=== PATIENT | female | born 1970 | race Caucasian/White ===

== ENCOUNTER 2016-09-01 12:11 | Emergency (ER) | payer OTHER ==
[2016-09-01 12:11] VITALS: BMI 22.4
[2016-09-01 12:23] VITALS: BP 118/74; PULSE 66; RESP 16; TEMP 98.8; O2SAT 100
[2016-09-01] MEDS ORDERED: Sodium Chloride 0.9% 1,000 ML IV STA (13:15)
--- NOTE | 2016-09-01 13:40 | ED PDOC ---
HPI: General Adult Time Seen by Provider: 09/01/16 12:29 Chief Complaint (Nursing): Flu-like Symptoms Chief Complaint (Provider): Flu-like Symptoms History Per: Patient History/Exam Limitations: no limitations Onset/Duration Of Symptoms: Days (x2) Have you had recent travel within the past 21 days to any of the following countries: [place], [place], [place] or [place]?: No Current Symptoms Are (Timing): Still Present Additional Complaint(s): Laura Sorensen is a 46 year old female that presents to the ED with a chief complaint of fever, cough, and sore throat that she has been experiencing for the past two days. Patient reports that this morning, she developed two episodes of nonbloody vomiting, along with minimal epigastric abdominal pain that began after the vomiting. She denies any diarrhea, chest pain, shortness of breath, constipation, melena, hematemesis, sick contacts, or recent travel. Past Medical History Reviewed: Historical Data, Nursing Documentation, Vital Signs Vital Signs: Last Vital Signs Temp 98.8 F 09/01/16 12:21 Pulse 66 09/01/16 12:21 Resp 16 09/01/16 12:21 BP 118/74 09/01/16 12:21 Pulse Ox 100 09/01/16 13:56 - Medical History PMH: Denies: Chronic Kidney Disease - Family History Family History: States: Unknown Family Hx - Home Medications Home Medications: Ambulatory Orders Medication Instructions Recorded Ciprofloxacin [Cipro] 500 mg PO BID 04/24/16 Famotidine [Pepcid] 20 mg PO BID #30 tab 04/25/16 Ondansetron [Zofran] 4 mg PO Q8H PRN #15 tab 04/25/16 Benzonatate [Tessalon Perle] 100 mg PO Q8 PRN #30 capsule 09/01/16 Naproxen [Naprosyn] 500 mg PO BID PRN #30 tab 09/01/16 Ondansetron ODT [Zofran ODT] 4 mg PO TID #21 odt 09/01/16 - Allergies Allergies/Adverse Reactions: Allergies Allergy/AdvReac Type Severity Reaction Status Date / Time No Known Allergies Allergy Verified 11/13/14 09:27 Review of Systems Constitutional: Positive for: Fever ENT: Positive for: Throat Pain (sore throat) Cardiovascular: Negative for: Chest Pain Respiratory: Positive for: Cough. Negative for: Shortness of Breath Gastrointestinal: Positive for: Vomiting (x2 episodes nonbloody vomiting), Abdominal Pain (epigastric abdominal pain that began after vomiting). Negative for: Diarrhea, Constipation, Melena, Hematemesis Physical Exam - Reviewed Nursing Documentation Reviewed: Yes Vital Signs Reviewed: Yes - Physical Exam Appears: Positive for: Non-toxic, No Acute Distress Head Exam: Positive for: ATRAUMATIC, NORMOCEPHALIC Skin: Positive for: Normal Color, Warm Eye Exam: Positive for: Normal appearance, EOMI, PERRL ENT: Positive for: Pharyngeal Erythema Cardiovascular/Chest: Positive for: Regular Rate, Rhythm. Negative for: Murmur Respiratory: Positive for: Normal Breath Sounds. Negative for: Respiratory Distress Gastrointestinal/Abdominal: Positive for: Soft. Negative for: Tenderness Neurologic/Psych: Positive for: Alert, Oriented - Laboratory Results Result Diagrams: 09/01/16 13:28 09/01/16 13:28 - ECG O2 Sat by Pulse Oximetry: 100 (RA) Pulse Ox Interpretation: Normal - Radiology X-Ray: Interpreted by Me (CXR) X-Ray Interpretation: No Acute Disease - Progress Re-evaluation Time: 15:37 (Reports feeling much better. Denies abdominal pain, headache. ) Condition: Re-examined, Improved Medical Decision Making Medical Decision Making: Impression: Flu-Like Symptoms Plan: * CMP * CBC * Lipase * Blood Culture * Urine * Urinalysis * Flu Swab * Rapid Strep * Chest X-Ray * Reevaluation Scribe Attestation: Documented by Keya Manuel, acting as a scribe for Yuniel Scott PA-C. Provider Scribe Attestation: All medical record entries made by the Scribe were at my direction and personally dictated by me. I have reviewed the chart and agree that the record accurately reflects my personal performance of the history, physical exam, medical decision making, and the department course for this patient. I have also personally directed, reviewed, and agree with the discharge instructions and disposition. Disposition - Clinical Impression Clinical Impression: Viral syndrome - Patient ED Disposition Is Patient to be Admitted: No - Disposition Referrals: [facility] [Outside] Disposition: Routine/Home Disposition Time: 15:37 Condition: IMPROVED Prescriptions: Benzonatate [Tessalon Perle] 100 mg PO Q8 PRN #30 capsule PRN Reason: Cough Naproxen [Naprosyn] 500 mg PO BID PRN #30 tab PRN Reason: Pain Ondansetron ODT [Zofran ODT] 4 mg PO TID #21 odt Instructions: Viral Syndrome (ED) Print Language: MALAY
[2016-09-01 13:57] LABS: BASO % 0.7 % (0.0-2.0); EOS % 0.6 % (0.0-4.0); HEMATOCRIT 39.2 % (34.0-47.0); LYMPH # 0.5 K/uL (1.0-4.3); LYMPH % 9.3 % (20.0-40.0); MEAN CELL VOLUME 84.3 fl (81.0-99.0); MONO # 0.5 K/uL (0.0-0.8); MONO % 9.3 % (0.0-10.0); NEUT # 4.3 K/uL (1.8-7.0); NEUT % 80.1 % (50.0-75.0); PLATELET COUNT 192 K/uL (130-400); RED CELL DISTRIBUTION WIDTH 15.1 % (11.5-14.5); WHITE BLOOD COUNT 5.3 K/uL (4.8-10.8)
[2016-09-01 14:08] LABS: URINE BILIRUBIN NEGATIVE (NEGATIVE); URINE BLOOD NEGATIVE (NEGATIVE); URINE COLOR YELLOW (YELLOW); URINE GLUCOSE (UA) NEG (Normal); URINE KETONE TRACE mg/dL (NEGATIVE); URINE LEUKOCYTE ESTERASE NEG Leu/uL (Negative); URINE PROTEIN 30 mg/dL (NEGATIVE); URINE UROBILINOGEN 0.2-1.0 mg/dL (0.2-1.0); WBC URINE 1 /hpf (0-5)
[2016-09-01 14:09] LABS: ALB/GLOB RATIO 1.3 (1.0-2.1); ALKALINE PHOSPHATASE 58 U/L (38-126); ALT/SGPT 34 U/L (9-52); AST/SGOT 33 U/L (14-36); BLOOD UREA NITROGEN 11 mg/dl (7-17); CALCIUM 9.1 mg/dL (8.4-10.2); CARBON DIOXIDE 26 mmol/L (22-30); CHLORIDE 101 mmol/L (98-107); GFR AFRICAN-AMERICAN > 60; GLUCOSE,RANDOM 108 mg/dL (65-105); LIPASE 56 U/L (23-300); POTASSIUM 4.3 MMOL/L (3.6-5.0); SODIUM 139 mmol/l (132-148); TOTAL PROTEIN 7.7 G/DL (6.3-8.2)
--- NOTE | 2016-09-01 14:10 | RAD ---
HISTORY: cough COMPARISON: No prior TECHNIQUE: Chest PA and lateral FINDINGS: LUNGS: The interstitial markings are slightly increased and coarsened. No focal consolidation. Thein the PLEURA: No significant pleural effusion identified. No pneumothorax apparent. CARDIOVASCULAR: Normal. OSSEOUS STRUCTURES: No significant abnormalities. VISUALIZED UPPER ABDOMEN: Normal. OTHER FINDINGS: None. IMPRESSION: No focal consolidation. Slightly increased/ coarse interstitial markings nonspecific
[2016-09-01 20:29] LABS: EOSINOPHIL 1 % (0-7); NEUTROPHIL 83 % (42-75); TOTAL CELLS COUNTED 100
[2016-09-01 20:30] LABS: LARGE PLATELETS PRESENT
== END 2016-09-01 16:30 | disposition home or self-care (01) ==
LOC: H.ER 12:11
DX: B34.9 Viral infection, unspecified (principal); J02.9 Acute pharyngitis, unspecified; R11.10 Vomiting, unspecified; R10.13 Epigastric pain

== ENCOUNTER 2016-09-02 21:10 | Emergency (ER) | payer OTHER ==
[2016-09-02 21:11] VITALS: BMI 22.4
[2016-09-02 21:19] VITALS: BP 120/64; PULSE 63; RESP 16; TEMP 98.1; O2SAT 98
--- NOTE | 2016-09-02 21:39 | ED PDOC ---
HPI: General Adult Time Seen by Provider: 09/02/16 21:24 Chief Complaint (Nursing): Cough, Cold, Congestion Chief Complaint (Provider): Nasal congestion History Per: Patient History/Exam Limitations: no limitations Onset/Duration Of Symptoms: Hrs Have you had recent travel within the past 21 days to any of the following countries: [place], [place], [place] or [place]?: No Current Symptoms Are (Timing): Still Present Additional Complaint(s): Laura Sorensen, a 46 year old female, presents to the ED with nasal congestion. The patient states that she was recently seen in the ED for vomiting and sore throat and she was given an Rx for naproxyn, zofran and tessalon. She also reports that she had blood work and a chest Xray done, all of which were normal. The patient reports that today she has developed nasal congestion without facial pain prompting ED visit. Denies fever, sick contacts, recent travel, headaches, vomiting, diarrhea, chest pain and abdominal pain, headache. Past Medical History Reviewed: Historical Data, Nursing Documentation, Vital Signs Vital Signs: Last Vital Signs Temp 98.1 F 09/02/16 21:15 Pulse 63 09/02/16 21:15 Resp 16 09/02/16 21:15 BP 120/64 09/02/16 21:15 Pulse Ox 98 09/02/16 21:47 - Medical History PMH: Denies: Chronic Kidney Disease - Surgical History Surgical History: No Surg Hx - Family History Family History: States: Unknown Family Hx - Home Medications Home Medications: Ambulatory Orders Medication Instructions Recorded Ciprofloxacin [Cipro] 500 mg PO BID 04/24/16 Famotidine [Pepcid] 20 mg PO BID #30 tab 04/25/16 Ondansetron [Zofran] 4 mg PO Q8H PRN #15 tab 04/25/16 Benzonatate [Tessalon Perle] 100 mg PO Q8 PRN #30 capsule 09/01/16 Naproxen [Naprosyn] 500 mg PO BID PRN #30 tab 09/01/16 Ondansetron ODT [Zofran ODT] 4 mg PO TID #21 odt 09/01/16 Azithromycin [Zithromax] 250 mg PO DAILY #6 tab 09/02/16 Fluticasone Propionate [Flonase] 2 spr NS DAILY PRN #1 bottle 09/02/16 Promethazine DM [Phenergan DM 5 - 10 ml PO Q8 PRN #120 ml 09/02/16 Syrup] - Allergies Allergies/Adverse Reactions: Allergies Allergy/AdvReac Type Severity Reaction Status Date / Time No Known Allergies Allergy Verified 11/13/14 09:27 Review of Systems Constitutional: Negative for: Fever Cardiovascular: Negative for: Chest Pain Gastrointestinal: Negative for: Vomiting, Abdominal Pain, Diarrhea Physical Exam - Reviewed Nursing Documentation Reviewed: Yes Vital Signs Reviewed: Yes - Physical Exam Appears: Positive for: Non-toxic, No Acute Distress Head Exam: Positive for: ATRAUMATIC, NORMOCEPHALIC Skin: Positive for: Normal Color, Warm, Dry Eye Exam: Positive for: Normal appearance ENT: Positive for: Normal ENT Inspection, Nasal Congestion. Negative for: Sinus Pain/Drainage (no sinus tender) Cardiovascular/Chest: Positive for: Regular Rate, Rhythm, Chest Non Tender. Negative for: Tachycardia Respiratory: Positive for: Normal Breath Sounds. Negative for: Wheezing, Respiratory Distress Gastrointestinal/Abdominal: Positive for: Normal Exam, Bowel Sounds, Soft. Negative for: Tenderness Neurologic/Psych: Positive for: Alert, Oriented - ECG O2 Sat by Pulse Oximetry: 98 (RA) Pulse Ox Interpretation: Normal Medical Decision Making Medical Decision Makin:24 Initial impression: 46 year old female presenting with nasal congestion Instructed to stop taking Tessalon. Discussed results and plan with patient who expresses understanding. All questions answered and there is agreement with the plan to discharge home with instructions. Patient is stable for discharge. Scribe Attestation: Documented by Yani Segovia, acting as a scribe for Yuniel Scott PA-C., MD Scribe Attestation: All medical record entries made by the Scribe were at my direction and personally dictated by me. I have reviewed the chart and agree that the record accurately reflects my personal performance of the history, physical exam, medical decision making, and the department course for this patient. I have also personally directed, reviewed, and agree with the discharge instructions and disposition. Disposition - Clinical Impression Clinical Impression: Viral syndrome, URI (upper respiratory infection) - Patient ED Disposition Is Patient to be Admitted: No Counseled Patient/Family Regarding: Studies Performed, Diagnosis - Disposition Referrals: [facility] [Outside] [facility] [Outside] Disposition: Routine/Home Disposition Time: 21:45 Condition: STABLE Prescriptions: Azithromycin [Zithromax] 250 mg PO DAILY #6 tab Fluticasone Propionate [Flonase] 2 spr NS DAILY PRN #1 bottle PRN Reason: Allergy Symptoms Promethazine DM [Phenergan DM Syrup] 5 - 10 ml PO Q8 PRN #120 ml PRN Reason: Cough Instructions: Upper Respiratory Infection (ED) Print Language: ARMENIAN
== END 2016-09-02 21:53 | disposition home or self-care (01) ==
LOC: H.ER 21:10
DX: J06.9 Acute upper respiratory infection, unspecified (principal); B34.9 Viral infection, unspecified; R09.81 Nasal congestion